=== PATIENT | male | born 1975 | race Caucasian/White ===

== ENCOUNTER 2016-07-15 02:52 | Emergency (ER) | payer OTHER ==
[2016-07-15] MEDS ORDERED: DECADRON 10MG INJ. IM ONE (03:39)
--- NOTE | 2016-07-15 03:45 | ERPHSYRPT ---
- History of Present Illness Time Seen by Provider: 07/15/16 03:31 Source: patient Exam Limitations: no limitations Patient Subjective Stated Complaint: pt is co hives over his entire body - itching and stinging -denies new exposures no fever no vomiting took benadryl without relief Triage Nursing Assessment: pt is awake and alert and able to answer questions - areas of red hives over body Physician History: FOR THE PAST 10 HOURS ABOUT 30 MINUTES AFTER EATING A BURGER [employer] FISH SANDWICH PT ERUPTED WITH PRURITIC HIVES FIRST ON THE TRUNK THEN SPREADING TO THE EXTREMITIES AND NECK. PT DENIES TIGHTNESS IN THE NECK, SHORTNESS OF AIR, NAUSEA , VOMITING, ABDOMINAL PAIN. Allergies/Adverse Reactions: No Known Drug Allergies Allergy (Unverified 07/15/16 03:29) Home Medications: Atorvastatin Calcium 1 tab DAILY 07/15/16 [History] Gabapentin 1 tab QID 07/15/16 [History] Metformin HCl 500 mg [Glucophage 500 MG] 07/15/16 [History] Tizanidine HCl [Zanaflex] 1 tab 07/15/16 [History] Hx Tetanus, Diphtheria Vaccination/Date Given: Yes Hx Influenza Vaccination/Date Given: No Hx Pneumococcal Vaccination/Date Given: No - Review of Systems Constitutional: No Fever Respiratory: No Dyspnea Cardiac: No Chest Pain Skin: Pruritis, Rash All Other Systems: Reviewed and Negative - Past Medical History Pertinent Past Medical History: Yes Cardiac History: High Cholesterol Endocrine Medical History: Diabetes Type II Musculoskeletal History: Degenerative Disk Disease - Past Surgical History Past Surgical History: Yes Gastrointestinal: Appendectomy Musculoskeletal: Other Other Surgical History: back surgeries - Social History Smoking Status: Current every day smoker Exposure to second hand smoke: Yes Drug Use: none Patient Lives Alone: No - Nursing Vital Signs Nursing Vital Signs: Initial Vital Signs Temperature 97.9 F Temperature Source Oral Pulse Rate 95 Respiratory Rate 16 Blood Pressure [Left Arm] 140/82 - Physical Exam General Appearance: alert Eye Exam: PERRL/EOMI, eyes nml inspection Ears, Nose, Throat Exam: TMs normal, pharynx normal, moist mucous membranes Neck Exam: full range of motion Respiratory Exam: normal breath sounds, lungs clear Cardiovascular Exam: normal heart sounds Gastrointestinal/Abdomen Exam: soft, normal bowel sounds Back Exam: normal range of motion Extremity Exam: No pedal edema Neurologic Exam: alert, cooperative Skin Exam: rash (PRURITIC HIVES SCATTERED OVER TRUNK, NECK AND EXTREMITIES.) SpO2 Interpretation: normal SpO2: 99 Oxygen Delivery: Room Air - Course Nursing assessment & vital signs reviewed: Yes - Departure Time of Disposition: 03:47 Departure Disposition: Home Clinical Impression: HIVES Condition: Fair Critical Care Time: No Instructions: Hives Additional Instructions: FOLLOW UP WITH PRIVATE DOCTOR TOMORROW. AVOID FISH SANDWICHES FROM [employer]. Prescriptions: Hydroxyzine HCl 25 mg [Atarax 25 mg] 50 mg PO Q4H PRN PRN #40 tablet PRN Reason: Itching Methylprednisolone Packet [Medrol Dosepack] 4 mg PO UD #30 packet
[2016-07-15] MEDS ORDERED: DECADRON 10MG INJ. ONE (03:46)
[2016-07-15 04:25] VITALS: BP 134/80; PULSE 90; O2SAT 97
== END 2016-07-15 04:24 | disposition home or self-care (01) ==
LOC: ED 02:52
DX: L50.9 Urticaria, unspecified (principal)
CPT/HCPCS: 96372; 99283; 99284; J1100

== ENCOUNTER 2016-07-21 21:39 | Emergency (ER) | payer OTHER ==
--- NOTE | 2016-07-21 22:07 | ERPHSYRPT ---
- History of Present Illness Time Seen by Provider: 07/21/16 21:45 Source: patient Exam Limitations: no limitations Physician History: Pt. treated with Steroids recently for allergic reaction to Xanaflex. Now his BG has been >300 today. He C/O blurred vision slightly, but no chest pain, DAMON or dizziness. He takes Metformin 500 mg po once daily. Timing/Duration: today Severity: moderate Associated Symptoms: No nausea, No vomiting, No abdominal pain, No shortness of breath, No heartburn, No diaphoresis, No cough, No chills, No headaches, No loss of appetite, No malaise, No rash, No syncope, No seizure, No weakness Allergies/Adverse Reactions: tizanidine [From Zanaflex] Allergy (Verified 07/21/16 22:08) Hives Home Medications: Atorvastatin Calcium 1 tab DAILY 07/15/16 [History] Gabapentin 1 tab QID 07/15/16 [History] Metformin HCl 500 mg [Glucophage 500 MG] 500 mg PO DAILY 07/15/16 [History ] Famotidine [Pepcid] 40 mg PO DAILY 07/21/16 [History] Hydroxyzine HCl 25 mg [Atarax 25 mg] 50 mg PO BID 07/21/16 [History] Hx Tetanus, Diphtheria Vaccination/Date Given: Yes Hx Influenza Vaccination/Date Given: No Hx Pneumococcal Vaccination/Date Given: No - Review of Systems Constitutional: No Symptoms Eyes: Other (blurred vision) Ears, Nose, & Throat: No Symptoms Respiratory: No Symptoms Cardiac: No Symptoms Abdominal/Gastrointestinal: No Symptoms Genitourinary Symptoms: No Symptoms Musculoskeletal: No Symptoms Skin: No Symptoms Neurological: No Symptoms Psychological: No Symptoms Endocrine: Polyuria, Polydipsia Hematologic/Lymphatic: No Symptoms - Past Medical History Pertinent Past Medical History: Yes Cardiac History: High Cholesterol Endocrine Medical History: Diabetes Type II Musculoskeletal History: Degenerative Disk Disease - Past Surgical History Past Surgical History: Yes Gastrointestinal: Appendectomy Musculoskeletal: Other Other Surgical History: back surgeries - Social History Smoking Status: Current every day smoker Exposure to second hand smoke: Yes Drug Use: none Patient Lives Alone: No - Nursing Vital Signs Nursing Vital Signs: Initial Vital Signs Temperature 97.6 F Temperature Source Oral Pulse Rate 74 Respiratory Rate 18 Blood Pressure [Right Arm] 136/92 Pain Intensity 0 - Physical Exam General Appearance: mild distress Eye Exam: PERRL/EOMI, eyes nml inspection Ears, Nose, Throat Exam: normal ENT inspection, pharynx normal, moist mucous membranes Neck Exam: normal inspection, non-tender, supple, full range of motion Respiratory Exam: normal breath sounds, lungs clear, airway intact Cardiovascular Exam: regular rate/rhythm, normal heart sounds, normal peripheral pulses Gastrointestinal/Abdomen Exam: soft, normal bowel sounds Extremity Exam: normal inspection, normal range of motion, pelvis stable Neurologic Exam: alert, oriented x 3, cooperative Skin Exam: normal color, warm, dry SpO2 Interpretation: normal SpO2: 96 Oxygen Delivery: Room Air - Course Nursing assessment & vital signs reviewed: Yes Ordered Tests: Active Orders 24 hr Category Date Time Status CBC W DIFF Stat Lab 07/21/16 22:35 Completed CMP Stat Lab 07/21/16 22:35 Completed CULTURE,URINE Stat Lab 07/21/16 22:46 Received Manual Differential NC Stat Lab 07/21/16 22:35 Completed UA W/ MICROSCOPIC Stat Lab 07/21/16 22:46 Completed Medication Summary Discontinued Medications Generic Name Dose Route Start Last Admin Trade Name Freq PRN Reason Stop Dose Admin Belladonna Alkaloids/Phenobarbital 60 ml 07/21/16 22:51 07/21/16 22:59 Gi Cocktail 60ml (Belladonn/Phenobarb/Lidoc* PO 07/21/16 22:52 Not Given STAT ONE Lab/Rad Data: Laboratory Result Diagrams 07/21/16 22:35 07/21/16 22:35 Laboratory Results 07/21/16 07/21/16 07/21/16 Range/Units 22:46 22:35 22:35 WBC 18.1 H (4.0-10.5) K/mm3 RBC 4.81 (4.1-5.6) M/mm3 Hgb 15.1 (12.5-18.0) gm/dl Hct 44.0 (42-50) % MCV 91.5 (78-100) fl MCH 31.4 (26-32) pg MCHC 34.3 (32-36) g/dl RDW 12.9 (11.5-14.0) % Plt Count 364 (150-450) K/mm3 MPV 9.9 H (6-9.5) fl Sodium 139 (136-145) mEq/L Potassium 3.9 (3.5-5.1) mEq/L Chloride 103 (98-107) mEq/L Carbon Dioxide 25.3 (21-32) mEq/L Anion Gap 15.0 (5-15) MEQ/L BUN 20 (9-20) mg/dL Creatinine 1.71 H (0.55-1.30) mg/dl Estimated GFR 47 ML/MIN Glucose 316 H (70-110) MG/DL Calcium 9.2 (8.5-10.1) mg/dL Total Bilirubin 0.3 (0.2-1.0) mg/dL AST 19 (15-37) U/L ALT 44 (12-78) U/L Alkaline Phosphatase 90 (46-116) U/L Serum Total Protein 7.3 (6.4-8.2) gm/dL Albumin 3.4 (3.4-5.0) g/dL Ur Collection Type CLEAN CATCH Urine Color YELLOW (YELLOW) Urine Appearance CLEAR (CLEAR) Urine pH 6.0 (5-6) Ur Specific [place] 1.015 (1.005-1.025) Urine Protein 30 (Negative) Urine Glucose (UA) >=1000 (NEGATIVE) mg/dL Urine Ketones TRACE (NEGATIVE) Urine Nitrite NEGATIVE (NEGATIVE) Urine Bilirubin NEGATIVE (NEGATIVE) Urine Urobilinogen 0.2 (0-1) mg/dL Urine WBC (Auto) NEGATIVE (NEGATIVE) Urine RBC (Auto) TRACE-INTACT (0-5) Tadeo/ul Urine Microscopic RBC 0-2 (0-2) /HPF Urine Microscopic WBC 0-2 (0-5) /HPF Ur Epithelial Cells FEW (FEW) /HPF Urine Bacteria RARE (NEGATIVE) /HPF Specimen Received 07/21/16 2682 - Progress Progress: improved Will see patient in: other (PCP 1 week) Counseled pt/family regarding: lab results, diagnosis, need for follow-up - Departure Time of Disposition: 23:00 Departure Disposition: Home Clinical Impression: Hyperglycemia without ketosis, Steroid side effects Condition: Stable Critical Care Time: No Referrals: HOSPITAL,'S [Primary Care Provider] - Instructions: Hyperglycemia -- Adult Additional Instructions: Plan to taper steroids more rapidly, increase Metformin 500 mg to BID dosing while on steroids, and check BG frequently.
[2016-07-21 22:43] LABS: Mean Cell Volume 91.5 fl (78-100); Mean Corpuscular Hemoglobin 31.4 pg (26-32); Mean Platelet Volume 9.9 fl (6-9.5); Platelet Count 364 K/mm3 (150-450); Red Blood Count 4.81 M/mm3 (4.1-5.6); Red Cell Distribution Width 12.9 % (11.5-14.0); White Blood Count 18.1 K/mm3 (4.0-10.5)
[2016-07-21] MEDS ORDERED: GI COCKTAIL 60ML (Belladonn/Phenobarb/Lidoc PO ONE (22:51)
[2016-07-21 23:04] LABS: ALBUMIN 3.4 g/dL (3.4-5.0); BILIRUBIN,TOTAL 0.3 mg/dL (0.2-1.0); Carbon Dioxide 25.3 mEq/L (21-32); Potassium 3.9 mEq/L (3.5-5.1); Total Protein 7.3 gm/dL (6.4-8.2)
[2016-07-21 23:10] VITALS: BP 136/92; PULSE 74
[2016-07-21 23:10] LABS: Bacteria RARE /HPF (NEGATIVE); COMPLETE URINE MICROSCOPIC? YES; Collection Type CLEAN CATCH; Epithelial Cells FEW /HPF (FEW); WBC 0-2 /HPF (0-5)
[2016-07-21 23:11] LABS: ADD URINE CULTURE? YES (NO)
[2016-07-21 23:14] VITALS: O2SAT 96
[2016-07-21 23:22] LABS: Eosinophil 2 % (0.00-3.0); Platelet Estimate NORMAL (NORMAL); Total Cells Counted 100
== END 2016-07-21 23:34 | disposition home or self-care (01) ==
LOC: ED 21:39
DX: E11.65 Type 2 diabetes mellitus with hyperglycemia (principal); T38.0X5A Adverse effect of glucocorticoids and synthetic analogues, initial encounter; Z79.899 Other long term (current) drug therapy; E78.00 Pure hypercholesterolemia, unspecified; Z79.84 Long term (current) use of oral hypoglycemic drugs
CPT/HCPCS: 36415; 80053; 81000; 85025; 87086; 99283; 99284; A9270-GY

== ENCOUNTER 2019-09-17 00:23 | Emergency (ER) | payer OTHER, BC ==
--- NOTE | 2019-09-17 00:55 | ERPHSYRPT ---
- History of Present Illness Time Seen by Provider: 09/17/19 00:50 Source: patient Exam Limitations: no limitations Physician History: This is a 44-year-old diabetic gentleman with hypertension on low-dose lisinopril who presents with mild dizziness and lightheadedness. Onset was approximately 10:30 PM prior to this evaluation. He felt a little unsteady. He had no syncopal episode. He has had no head injury. His blood pressure is a little bit elevated. He took his medications this past evening. Patient works the third shift at a correctional facility. Patient denies chest pain. He denies shortness of breath. He denies abdominal pain. He said no nausea vomiting or diarrhea. He had no arthralgias or myalgias. He is never had anything like this before. Timing/Duration: today Severity: mild Character of Deficits: none Deficits: off balance (Feeling of off balance. Very mild but present) Baseline/Normal Cognition: alert oriented x 3 Current Cognition: alert oriented x 3 Associated Symptoms: other (Light headedness and dizziness) Allergies/Adverse Reactions: tizanidine [From Zanaflex] Allergy (Verified 07/21/16 22:08) Hives Home Medications: Atorvastatin Calcium 1 tab DAILY 07/15/16 [History] Aspirin 81 gm Chew [Baby Aspirin 81 mg Chew] 1 tab PO DAILY 09/17/19 [History] Pregabalin [Lyrica] 1 cap PO BID 09/17/19 [History] lisinopriL [Zestril] 1 tab PO DAILY 09/17/19 [History] Hx Tetanus, Diphtheria Vaccination/Date Given: Yes Hx Influenza Vaccination/Date Given: No Hx Pneumococcal Vaccination/Date Given: No Travel Risk - International Travel Have you traveled outside of the country in past 3 weeks: No - Coronavirus Screening Are you exhibiting any of the following symptoms?: No Close contact with a COVID-19 positive Pt in past 14-21 Days: No - Review of Systems Constitutional: No Symptoms Eyes: No Symptoms Ears, Nose, & Throat: No Symptoms Respiratory: No Symptoms Cardiac: No Symptoms Abdominal/Gastrointestinal: No Symptoms Genitourinary Symptoms: No Symptoms Musculoskeletal: No Symptoms Skin: No Symptoms Neurological: Dizziness, Other (Lightheadedness) Psychological: No Symptoms Endocrine: No Symptoms Hematologic/Lymphatic: No Symptoms Immunological/Allergic: No Symptoms All Other Systems: Reviewed and Negative - Past Medical History Pertinent Past Medical History: Yes Neurological History: No Pertinent History ENT History: No Pertinent History Cardiac History: High Cholesterol, Hypertension Respiratory History: No Pertinent History Endocrine Medical History: Diabetes Type II Musculoskeletal History: Degenerative Disk Disease GI Medical History: No Pertinent History History: No Pertinent History Psycho-Social History: No Pertinent History Male Reproductive Disorders: No Pertinent History - Past Surgical History Past Surgical History: Yes Neuro Surgical History: No Pertinent History Cardiac: No Pertinent History Respiratory: No Pertinent History Gastrointestinal: Appendectomy Genitourinary: No Pertinent History Musculoskeletal: Other Other Surgical History: back surgeries - Social History Smoking Status: Current every day smoker How long have you smoked: 30 yrs Exposure to second hand smoke: Yes Drug Use: none Patient Lives Alone: No - Nursing Vital Signs Nursing Vital Signs: Initial Vital Signs Temperature 98.3 F 09/17/19 00:24 Pulse Rate 120 H 09/17/19 00:24 Respiratory Rate 18 09/17/19 00:24 Blood Pressure 135/96 09/17/19 00:24 O2 Sat by Pulse Oximetry 97 09/17/19 00:24 Pain Scale Pain Intensity 0 - Darvin Coma Scale Best Eye Response ([place]): (4) open spontaneously Best Verbal Response ([place]): (5) oriented Best Motor Response ([place]): (6) obeys commands [place] Total: 15 - Physical Exam General Appearance: no apparent distress, alert, anxiety Eye Exam: bilateral eye: normal inspection, PERRL, EOMI Ears, Nose, Throat Exam: TMs normal, moist mucous membranes, other (Bilateral ear canals with cerumen present) Neck Exam: normal inspection, non-tender, supple, full range of motion Respiratory: normal breath sounds, lungs clear, airway intact, No chest tenderness, No respiratory distress Cardiovascular: regular rate/rhythm, normal heart sounds, normal peripheral pulses Gastrointestinal: soft, normal bowel sounds, No tenderness Rectal Exam: not done Back Exam: normal inspection, normal range of motion, No CVA tenderness, No vertebral tenderness Extremity Exam: normal inspection, normal range of motion, pelvis stable Mental Status: alert, oriented x 3, 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 No comparison EKG.) Ordered Tests: Active Orders 24 hr Category Date Time Status Grant Writer STAT Care 09/17/19 00:55 Active Clean Catch Urine Specimen STAT Care 09/17/19 00:55 Active EKG-ER Only STAT Care 09/17/19 00:55 Active EKG-ER Only STAT Care 09/17/19 02:27 Active IV Insertion STAT Care 09/17/19 00:55 Active HEAD WITHOUT CONTRAST [CT] Stat Exams 09/17/19 00:55 Taken CBC W DIFF Stat Lab 09/17/19 01:11 Completed CMP Stat Lab 09/17/19 01:11 Completed ETHYL ALCOHOL Stat Lab 09/17/19 01:11 Completed MAGNESIUM Stat Lab 09/17/19 01:11 Completed TROPONIN Q3H Lab 09/17/19 01:11 Completed TROPONIN Q3H Lab 09/17/19 03:30 Completed TROPONIN Q3H Lab 09/17/19 07:00 Ordered TROPONIN Q3H Lab 09/17/19 10:00 Ordered TROPONIN Q3H Lab 09/17/19 13:00 Ordered UA W/RFX UR CULTURE Stat Lab 09/17/19 01:11 Completed Urine Triage Profile Stat Lab 09/17/19 01:11 Completed Medication Summary Generic Name Dose Route Start Last Admin Trade Name Freq PRN Reason Stop Dose Admin Sodium Chloride 1,000 mls @ 100 mls/hr 09/17/19 01:00 09/17/19 01:06 Sodium Chloride 0.9% 1000 Ml IV 10/17/19 00:59 100 mls/hr .Q10H CALE Administration Lab/Rad Data: Laboratory Result Diagrams 09/17/19 01:11 09/17/19 01:11 Laboratory Results 09/17/19 09/17/19 09/17/19 Range/Units 03:30 01:11 01:11 WBC (4.0-10.5) K/mm3 RBC (4.1-5.6) M/mm3 Hgb (12.5-18.0) gm/dl Hct (42-50) % MCV (78-100) fl MCH (26-32) pg MCHC (32-36) g/dl RDW (11.5-14.0) % Plt Count (150-450) K/mm3 MPV (7.5-11.0) fl Gran % (36.0-66.0) % Eos # (Auto) (0-0.5) Absolute Lymphs (auto) (1.0-4.6) Absolute Monos (auto) (0.0-1.3) Lymphocytes % (24.0-44.0) % Monocytes % (0.0-12.0) % Eosinophils % (0.00-5.0) % Basophils % (0.0-0.4) % Absolute Granulocytes (1.4-6.9) Basophils # (0-0.4) Sodium 137 (137-145) mmol/L Potassium 3.8 (3.5-5.1) mmol/L Chloride 105 (98-107) mmol/L Carbon Dioxide 22 (22-30) mmol/L Anion Gap 14.3 (5-15) MEQ/L BUN 13 (9-20) mg/dL Creatinine 1.14 (0.66-1.25) mg/dL Estimated GFR > 60.0 ML/MIN Glucose 246 H (74-106) mg/dL Calcium 9.4 (8.4-10.2) mg/dL Magnesium 1.7 (1.6-2.3) mg/dL Total Bilirubin 0.80 (0.2-1.3) mg/dL AST 38 (17-59) U/L ALT 48 (0-50) U/L Alkaline Phosphatase 91 (38-126) U/L Troponin I < 0.012 < 0.012 (0.000-0.034) ng/mL Serum Total Protein 7.9 (6.3-8.2) g/dL Albumin 4.4 (3.5-5.0) g/dL Urine Color (YELLOW) Urine Appearance (CLEAR) Urine pH (5-6) Ur Specific [place] (1.005-1.025) Urine Protein (Negative) Urine Ketones (NEGATIVE) Urine Blood (0-5) Tadeo/ul Urine Nitrite (NEGATIVE) Urine Bilirubin (NEGATIVE) Urine Urobilinogen (0-1) mg/dL Ur Leukocyte Esterase (NEGATIVE) Urine WBC (Auto) (0-5) /HPF Urine RBC (Auto) (0-2) /HPF U Epithel Cells (Auto) (FEW) /HPF Urine Bacteria (Auto) (NEGATIVE) /HPF Urine Mucus (Auto) (NEGATIVE) /HPF Urine Culture Reflexed (NO) Urine Glucose (NEGATIVE) mg/dL Urine Opiates Level (NEGATIVE) Ur Methadone (NEGATIVE) Urine Barbiturates (NEGATIVE) Ur Phencyclidine (PCP) (NEGATIVE) Urine Amphetamine (NEGATIVE) U Benzodiazepine Level (NEGATIVE) Urine Cocaine (NEGATIVE) Urine Marijuana (THC) (NEGATIVE) Ethyl Alcohol < 10 (0-10) mg/dL 09/17/19 09/17/19 09/17/19 Range/Units 01:11 01:11 01:11 WBC 10.3 (4.0-10.5) K/mm3 RBC 4.83 (4.1-5.6) M/mm3 Hgb 15.3 (12.5-18.0) gm/dl Hct 44.2 (42-50) % MCV 91.5 (78-100) fl MCH 31.7 (26-32) pg MCHC 34.6 (32-36) g/dl RDW 12.6 (11.5-14.0) % Plt Count 294 (150-450) K/mm3 MPV 10.7 (7.5-11.0) fl Gran % 52.3 (36.0-66.0) % Eos # (Auto) 0.38 (0-0.5) Absolute Lymphs (auto) 3.73 (1.0-4.6) Absolute Monos (auto) 0.75 (0.0-1.3) Lymphocytes % 36.3 (24.0-44.0) % Monocytes % 7.3 (0.0-12.0) % Eosinophils % 3.7 (0.00-5.0) % Basophils % 0.4 (0.0-0.4) % Absolute Granulocytes 5.38 (1.4-6.9) Basophils # 0.04 (0-0.4) Sodium (137-145) mmol/L Potassium (3.5-5.1) mmol/L Chloride (98-107) mmol/L Carbon Dioxide (22-30) mmol/L Anion Gap (5-15) MEQ/L BUN (9-20) mg/dL Creatinine (0.66-1.25) mg/dL Estimated GFR ML/MIN Glucose (74-106) mg/dL Calcium (8.4-10.2) mg/dL Magnesium (1.6-2.3) mg/dL Total Bilirubin (0.2-1.3) mg/dL AST (17-59) U/L ALT (0-50) U/L Alkaline Phosphatase (38-126) U/L Troponin I (0.000-0.034) ng/mL Serum Total Protein (6.3-8.2) g/dL Albumin (3.5-5.0) g/dL Urine Color YELLOW (YELLOW) Urine Appearance CLEAR (CLEAR) Urine pH 5.0 (5-6) Ur Specific [place] 1.020 (1.005-1.025) Urine Protein 100 (Negative) Urine Ketones TRACE (NEGATIVE) Urine Blood SMALL (0-5) Tadeo/ul Urine Nitrite NEGATIVE (NEGATIVE) Urine Bilirubin NEGATIVE (NEGATIVE) Urine Urobilinogen NEGATIVE (0-1) mg/dL Ur Leukocyte Esterase NEGATIVE (NEGATIVE) Urine WBC (Auto) 3-5 (0-5) /HPF Urine RBC (Auto) NONE (0-2) /HPF U Epithel Cells (Auto) NONE (FEW) /HPF Urine Bacteria (Auto) NONE (NEGATIVE) /HPF Urine Mucus (Auto) SLIGHT (NEGATIVE) /HPF Urine Culture Reflexed NO (NO) Urine Glucose >=500 (NEGATIVE) mg/dL Urine Opiates Level NEGATIVE (NEGATIVE) Ur Methadone NEGATIVE (NEGATIVE) Urine Barbiturates NEGATIVE (NEGATIVE) Ur Phencyclidine (PCP) NEGATIVE (NEGATIVE) Urine Amphetamine NEGATIVE (NEGATIVE) U Benzodiazepine Level NEGATIVE (NEGATIVE) Urine Cocaine NEGATIVE (NEGATIVE) Urine Marijuana (THC) NEGATIVE (NEGATIVE) Ethyl Alcohol (0-10) mg/dL - Progress Progress: improved, re-examined Progress Note: 09/17/19 02:26 CAT scan of the head shows no acute intracranial findings 09/17/19 02:32 Medical decision making: This patient presented with complaint of lightheadedness. That has resolved. He has no chest pain at the time of discharge. Repeat EKG reveals normal sinus rhythm with a heart rate of 91. There is persistent left anterior fascicular block when compared to the EKG done earlier this morning. There are no acute ischemic changes present. I do not see any ST elevation however the computer readout says ST elevation suggest acute pericarditis. The patient is not having any chest pain at this time. I will keep him here to repeat a 3-hour troponin level and if this is normal I will discharge him to home. I will have him take NSAIDs for the next 5 days and have him follow-up as an outpatient with his primary care physician and/or a head start teacher. There are no acute intracranial findings on CAT scan of his head. His vital signs are stable at the time of discharge. His troponin is within normal limits. Does have bilateral ear canal cerumen. We discussed using Debrox or Cerumenex [id number]. 09/17/19 02:35 09/17/19 02:39 Counseled pt/family regarding: lab results, diagnosis, need for follow-up, rad results - Departure Departure Disposition: Home Clinical Impression: Dizziness, Excessive cerumen in both ear canals Condition: Stable Critical Care Time: No Referrals: [facility]OSPITAL,'[facility] [Primary Care Provider] - Additional Instructions: Use [id number] Debrox or Cerumenex to clean out the earwax within both your ear canals. Follow-up with your primary care physician for further management of your lightheadedness and dizziness. Take your blood pressure med ication as prescribed. Take ibuprofen 600 mg orally 3 times a day with food for the next 5 days.
[2019-09-17] MEDS ORDERED: Sodium Chloride 0.9% 1000 ML 1,000 ML IV SCH (01:00)
[2019-09-17] MEDS ORDERED: Sodium Chloride 0.9% 1000 ML 1,000 ML ONE (01:04)
[2019-09-17 01:12] LABS: Absolute Neutrophil Ct (ANC) 5.38 (1.4-6.9); BASOPHIL % 0.4 % (0.0-0.4); Basophil (Absolute #) 0.04 (0-0.4); Eosinophil % 3.7 % (0.00-5.0); Eosinophil (Absolute #) 0.38 (0-0.5); Hematocrit 44.2 % (42-50); Hemoglobin 15.3 gm/dl (12.5-18.0); Lymphocyte (Absolute #) 3.73 (1.0-4.6); Lymphocytes % 36.3 % (24.0-44.0); Mean Cell Volume 91.5 fl (78-100); Mean Corpuscular Hemoglobin 31.7 pg (26-32); Mean Corpuscular Hgb Concent. 34.6 g/dl (32-36); Mean Platelet Volume 10.7 fl (7.5-11.0); Monocyte (Absolute #) 0.75 (0.0-1.3); Monocytes % 7.3 % (0.0-12.0); Neutrophil % 52.3 % (36.0-66.0); Platelet Count 294 K/mm3 (150-450); Red Blood Count 4.83 M/mm3 (4.1-5.6); Red Cell Distribution Width 12.6 % (11.5-14.0); White Blood Count 10.3 K/mm3 (4.0-10.5)
[2019-09-17 01:13] LABS: Appearance CLEAR (CLEAR); Bilirubin NEGATIVE (NEGATIVE); Blood SMALL Ery/ul (0-5); Glucose >=500 mg/dL (NEGATIVE); Ketones TRACE (NEGATIVE); Leukocyte Esterase NEGATIVE (NEGATIVE); Mucus SLIGHT /HPF (NEGATIVE); Nitrite NEGATIVE (NEGATIVE); Protein,Urine Dip 100 (Negative); Urobilinogen NEGATIVE mg/dL (0-1)
[2019-09-17 01:23] LABS: ALBUMIN 4.4 g/dL (3.5-5.0); ALKALINE PHOSPHATASE 91 U/L (38-126); ANION GAP 14.3 MEQ/L (5-15); BLOOD UREA NITROGEN 13 mg/dL (9-20); CHLORIDE 105 mmol/L (98-107); Calcium 9.4 mg/dL (8.4-10.2); Carbon Dioxide 22 mmol/L (22-30); Creatinine 1 1.14 mg/dL (0.66-1.25); Glucose 246 mg/dL (74-106); MAGNESIUM 1.7 mg/dL (1.6-2.3); Potassium 3.8 mmol/L (3.5-5.1); SGOT/AST 38 U/L (17-59); SGPT/ALT 48 U/L (0-50); SODIUM 137 mmol/L (137-145); Total Protein 7.9 g/dL (6.3-8.2)
[2019-09-17 01:24] LABS: ETHYL ALCOHOL < 10 mg/dL (0-10)
[2019-09-17 01:27] LABS: Amphetamine,Urine NEGATIVE (NEGATIVE); Barbiturate,Urine NEGATIVE (NEGATIVE); Benzodiazepine,Urine NEGATIVE (NEGATIVE); Cocaine,Urine NEGATIVE (NEGATIVE); Methadone,Urine NEGATIVE (NEGATIVE); Opiate,Urine NEGATIVE (NEGATIVE); PCP,Urine NEGATIVE (NEGATIVE); THC,Urine NEGATIVE (NEGATIVE)
[2019-09-17 04:05] VITALS: BP 133/81; PULSE 89; O2SAT 96
--- NOTE | 2019-09-17 09:04 | XRAY ---
Indication: Dizziness. Hypertension. Multiple contiguous axial images obtained through the head without contrast. Comparison: None Normal appearing brain parenchyma, ventricles, and bony calvarium. There is mild/moderate bilateral paranasal sinus mucosal thickening without fluid leveling, greatest ethmoid sinuses. Mastoid air cells are clear. Impression: Pansinusitis. Remaining CT head without contrast exam is negative. Comment: Preliminary interpretation was made by [facility]. No critical discrepancy.
== END 2019-09-17 04:34 | disposition home or self-care (01) ==
LOC: ED 00:23
DX: R42 Dizziness and giddiness (principal); H61.23 Impacted cerumen, bilateral
CPT/HCPCS: 36000; 36415; 70450; 80053; 80307; 81001; 83735; 84484; 85025; 93005; 93041; 96360; 99284; G0480

== ENCOUNTER 2020-05-09 18:10 | Emergency (ER) | payer BC ==
[2020-05-09] MEDS ORDERED: PERCOCET TABLET 5/325MG PO ONE (18:31)
[2020-05-09] MEDS ORDERED: TORAdol 30 mg Injection IM ONE (18:31)
[2020-05-09 18:32] VITALS: BP 163/93; PULSE 91; O2SAT 96
--- NOTE | 2020-05-09 18:35 | ERPHSYRPT ---
- History of Present Illness Time Seen by Provider: 05/09/20 18:21 Source: patient Exam Limitations: no limitations Physician History: Increasing pain right upper anterior jaw after root canal done yesterday. Patient is on amoxicillin but not taking any pain medications. Allergies/Adverse Reactions: tizanidine [From Zanaflex] Allergy (Verified 07/21/16 22:08) Hives Home Medications: Atorvastatin Calcium 1 tab DAILY 07/15/16 [History] Aspirin 81 gm Chew [Baby Aspirin 81 mg Chew] 1 tab PO DAILY 09/17/19 [History] Pregabalin [Lyrica] 1 cap PO BID 09/17/19 [History] lisinopriL [Zestril] 1 tab PO DAILY 09/17/19 [History] Tizanidine HCl [Zanaflex] 4 mg PO DAILY 05/09/20 [History] Hx Tetanus, Diphtheria Vaccination/Date Given: Yes Hx Influenza Vaccination/Date Given: No Hx Pneumococcal Vaccination/Date Given: No - Past Medical History Pertinent Past Medical History: Yes Neurological History: No Pertinent History ENT History: No Pertinent History Cardiac History: High Cholesterol, Hypertension Respiratory History: No Pertinent History Endocrine Medical History: Diabetes Type II Musculoskeletal History: Degenerative Disk Disease GI Medical History: No Pertinent History History: No Pertinent History Psycho-Social History: No Pertinent History Male Reproductive Disorders: No Pertinent History - Past Surgical History Past Surgical History: Yes Neuro Surgical History: No Pertinent History Cardiac: No Pertinent History Respiratory: No Pertinent History Gastrointestinal: Appendectomy Genitourinary: No Pertinent History Musculoskeletal: Other Other Surgical History: back surgeries - Social History Smoking Status: Current every day smoker How long have you smoked: 30 yrs Exposure to second hand smoke: Yes Drug Use: none Patient Lives Alone: No - Progress Progress: pain not gone completely Counseled pt/family regarding: diagnosis, need for follow-up - Departure Departure Disposition: Home Clinical Impression: Pain, dental Condition: Stable Critical Care Time: No Referrals: DOCTOR,NO FAMILY [Primary Care Provider] - Instructions: Dental Pain (DC) Additional Instructions: Take pain medications as needed. Continue with amoxicillin. Follow-up with your dentist for reevaluation Monday morning. Return to ER for increasing pain swelling/fever chills etc. Prescriptions: Oxycodone HCl/Acetaminophen [Percocet 5-325 mg Tablet] 1 each PO Q6H PRN PRN 2 Days #8 tablet MDD 4 PRN Reason: Pain
[2020-05-09] MEDS ORDERED: TORAdol 30 mg Injection ONE (18:37)
[2020-05-09] MEDS ORDERED: PERCOCET TABLET 5/325MG ONE (18:38)
== END 2020-05-09 19:00 | disposition home or self-care (01) ==
LOC: ED 18:10
DX: R68.84 Jaw pain (principal); K08.89 Other specified disorders of teeth and supporting structures; I10 Essential (primary) hypertension; E11.9 Type 2 diabetes mellitus without complications; F17.210 Nicotine dependence, cigarettes, uncomplicated
CPT/HCPCS: 96372; 99283; J1885; A9270-GY

== ENCOUNTER 2021-01-31 20:49 | Emergency (ER) | payer BC, OTHER ==
[2021-01-31] MEDS ORDERED: Norflex 60 MG/2 ML IM ONE (22:17)
[2021-01-31] MEDS ORDERED: TORAdol 30 mg Injection IM ONE (22:17)
[2021-01-31] MEDS ORDERED: Norflex 60 MG/2 ML ONE (22:27)
[2021-01-31] MEDS ORDERED: TORAdol 30 mg Injection ONE (22:27)
--- NOTE | 2021-01-31 22:36 | ERPHSYRPT ---
- History of Present Illness Time Seen by Provider: 01/31/21 21:00 Source: patient Exam Limitations: no limitations Patient Subjective Stated Complaint: pt states he bent over this morning and heard a pop in his lower back and began having pain radiating down both legs. st ates pain on lt side is in the posterior upper leg, pain in rt leg is outer upper leg. Triage Nursing Assessment: pt alert and oriented answers questions approp. pt ambulatory with slow limping gait noted. respirations nonlabored with lungs cta. mild tenerness to lower back with palpation. pt able to move lower ext without difficulty. denies any incont of bowel or bladder. Physician History: 45 years old male with history of diabetes mellitus diabetic neuropathy, chronic back pain with L5-S1 fusion long time ago presented in the ER with chief complaint of sudden onset left lateral low back pain after he bent over while working in the yard earlier today and heard a popping sound with radiation of pain to buttock/lower extremity. Denies any numbness or weakness but what he has from his neuropathy. No loss of bowel or bladder control. Denies any midline back pain. Timing/Duration: today, constant, sudden, worse Method of Injury: bending Quality: stabbing Back Pain Location: paraspinous muscles Back Pain Radiation: buttocks, upper legs Severity of Pain-Max: severe Severity of Pain-Current: moderate Modifying Factors: Improves With: immobilization. Worsens With: movement Associated Symptoms: numbness in legs/feet, lower back pain, muscle spasms, No urinary incontinence, No loss of bowel control, No constipation, No nausea, No vomiting, No problems urinating Allergies/Adverse Reactions: gabapentin Allergy (Verified 01/31/21 22:00) Hives Home Medications: Atorvastatin Calcium 1 tab DAILY 07/15/16 [History] Aspirin 81 gm Chew [Baby Aspirin 81 mg Chew] 1 tab PO DAILY 09/17/19 [History] Pregabalin [Lyrica] 1 cap PO BID 09/17/19 [History] lisinopriL [Zestril] 1 tab PO DAILY 09/17/19 [History] Tizanidine HCl [Zanaflex] 4 mg PO DAILY 05/09/20 [History] Hx Tetanus, Diphtheria Vaccination/Date Given: Yes Hx Influenza Vaccination/Date Given: No Hx Pneumococcal Vaccination/Date Given: No Immunizations Up to Date: Yes Travel Risk - International Travel Have you traveled outside of the country in past 3 weeks: No - Coronavirus Screening Are you exhibiting any of the following symptoms?: No Close contact with a COVID-19 positive Pt in past 14-21 Days: No - Vaccine Status Have you recieved a Covid-19 vaccination: No - Review of Systems Constitutional: No Symptoms Ears, Nose, & Throat: No Symptoms Respiratory: No Symptoms Cardiac: No Symptoms Abdominal/Gastrointestinal: No Symptoms Genitourinary Symptoms: No Symptoms Musculoskeletal: Back Pain Skin: No Symptoms Neurological: Sensory Changes (Chronic) Psychological: No Symptoms Endocrine: No Symptoms Hematologic/Lymphatic: No Symptoms Immunological/Allergic: No Symptoms - Past Medical History Pertinent Past Medical History: Yes Neurological History: No Pertinent History ENT History: No Pertinent History Cardiac History: High Cholesterol, Hypertension Respiratory History: No Pertinent History Endocrine Medical History: Diabetes Type II Musculoskeletal History: Degenerative Disk Disease GI Medical History: No Pertinent History History: No Pertinent History Psycho-Social History: No Pertinent History Male Reproductive Disorders: No Pertinent History - Past Surgical History Past Surgical History: Yes Neuro Surgical History: No Pertinent History Cardiac: No Pertinent History Respiratory: No Pertinent History Gastrointestinal: Appendectomy Genitourinary: No Pertinent History Musculoskeletal: Other Other Surgical History: back surgeries. l5s1 fusion - Social History Smoking Status: Former smoker How long have you smoked: 30 yrs Exposure to second hand smoke: Yes Drug Use: none Patient Lives Alone: No - Nursing Vital Signs Nursing Vital Signs: Initial Vital Signs Temperature 98.1 F 01/31/21 21:38 Pulse Rate 74 01/31/21 21:38 Respiratory Rate 18 01/31/21 21:38 Blood Pressure 120/68 01/31/21 21:38 O2 Sat by Pulse Oximetry 98 01/31/21 21:38 Pain Scale Pain Intensity 10 - Physical Exam General Appearance: no apparent distress, alert Ears, Nose, Throat Exam: normal ENT inspection, TMs normal, pharynx normal Neck Exam: normal inspection, supple, full range of motion Respiratory Exam: normal breath sounds, lungs clear Cardiovascular Exam: regular rate/rhythm, normal heart sounds Gastrointestinal Exam: soft, normal bowel sounds, No tenderness Back Exam: normal inspection, decreased range of motion, muscle spasm (Left sacroiliac area), No vertebral tenderness (No midline tenderness) Extremity Exam: normal inspection, normal range of motion, pelvis stable Neurologic Exam: alert, oriented x 3, cooperative, manager building II-XII nml as tested, nml cerebellar function, nml station & gait, No abnormal gait Skin Exam: normal color SpO2 Interpretation: normal SpO2: 98 O2 Delivery: Room Air Ordered Tests: Medication Summary Discontinued Medications Generic Name Dose Route Start Last Admin Trade Name Augie PRN Reason Stop Dose Admin Ketorolac Tromethamine 30 mg 01/31/21 22:17 01/31/21 22:30 Ketorolac Tromethamine 30 Mg/Ml Inj IM 01/31/21 22:18 30 mg STAT ONE Administration Ketorolac Tromethamine Confirm 01/31/21 22:27 Ketorolac Tromethamine 30 Mg/Ml Inj Administered 01/31/21 22:28 Dose 30 mg .ROUTE .STK-[facility] ONE Orphenadrine Citrate 60 mg 01/31/21 22:17 01/31/21 22:30 Orphenadrine Citrate 60 Mg/2 Ml Amp IM 01/31/21 22:18 60 mg STAT ONE Administration Orphenadrine Citrate Confirm 01/31/21 22:27 Orphenadrine Citrate 60 Mg/2 Ml Amp Administered 01/31/21 22:28 Dose 60 mg .ROUTE .STK-MED ONE - Progress Progress: improved Progress Note: 01/31/21 45 years old is evaluated for low back pain after he bent over and started to have left lower back pain. No midline back pain. No weakness. No difficulty ambulation while in the ER. No other cauda equina symptoms. Given symptomatic treatment, feeling better on reevaluation. I have discussed with patient about obtaining CT but patient does not think this is the same kind of pain he used to have it before and it is more on the low lateral side and I do agree with him I believe he probably have low back strain. We will continue with pain medication and muscle relaxants to go home. Discussed signs symptoms of worsening needing return to ER which he seems understanding. Stable for discharge. Counseled pt/family regarding: diagnosis, need for follow-up - Departure Departure Disposition: Home Clinical Impression: Low back strain Qualifiers: Encounter type: initial encounter Qualified Code(s): S39.012A - Strain of muscle, fascia and tendon of lower back, initial encounter Condition: Stable Critical Care Time: No Referrals: [facility] [Primary Care Provider] - Follow up/PCP as directed (With your pain management/primary care doctor at [facility] for reevaluation in 1 to 2 days.) Instructions: Low Back Pain (DC) Additional Instructions: Take pain medications as needed. Continue with muscle relaxants which you have at home. Follow-up with primary care/pain management at [facility] Evelina Kam for reev aluation. Return to ER for intractable pain or if you have pain in the midline, numbness tingling more than your usual neuropathy or loss of bowel or bladder control. Prescriptions: Hydrocodone/APAP 5/325 [[place] 5/325 mg] 1 each PO Q6H PRN PRN #12 tablet MDD 4 PRN Reason: Pain
== END 2021-01-31 22:52 | disposition home or self-care (01) ==
LOC: ED 20:49
DX: S39.012A Strain of muscle, fascia and tendon of lower back, initial encounter (principal); X50.1XXA Overexertion from prolonged static or awkward postures, initial encounter; Y93.H2 Activity, gardening and landscaping; Z79.899 Other long term (current) drug therapy; E11.9 Type 2 diabetes mellitus without complications; I10 Essential (primary) hypertension
CPT/HCPCS: 96372; 99283; 99291; J1885; J2360

== ENCOUNTER 2022-02-13 13:06 | Emergency (ER) | payer OTHER ==
[2022-02-13 13:38] VITALS: O2SAT 96
--- NOTE | 2022-02-13 13:46 | ERPHSYRPT ---
- History of Present Illness Time Seen by Provider: 02/13/22 13:44 Source: patient Exam Limitations: no limitations Patient Subjective Stated Complaint: Cough Triage Nursing Assessment: Patient ambulated back to ED and transferred self to bed. Patient A+O x 3. Patient's skin flushed, warm and dry. Patient complains of fever, cough, vomiting, bodyaches and fatigue since yesterday. Patient complains of head ache 5/10. Physician History: Patient complains of fever, cough, vomiting, bodyaches and fatigue since yesterday. Patient complains of head ache 5/10. Timing/Duration: yesterday Cough Quality/Degree: dry cough Associated Symptoms: fever, chills, cough, headache, muscle aches Allergies/Adverse Reactions: duloxetine Allergy (Verified 02/13/22 13:27) gabapentin Allergy (Verified 01/31/21 22:00) Hives Home Medications: Atorvastatin Calcium 1 tab DAILY 07/15/16 [History] Aspirin 81 gm Chew [Baby Aspirin 81 mg Chew] 1 tab PO DAILY 09/17/19 [History] Pregabalin [Lyrica] 1 cap PO BID 09/17/19 [History] lisinopriL [Zestril] 1 tab PO DAILY 09/17/19 [History] Tizanidine HCl [Zanaflex] 4 mg PO DAILY 05/09/20 [History] Hx Tetanus, Diphtheria Vaccination/Date Given: Yes Hx Influenza Vaccination/Date Given: No Hx Pneumococcal Vaccination/Date Given: No Immunizations Up to Date: Yes Travel Risk - International Travel Have you traveled outside of the country in past 3 weeks: No - Coronavirus Screening Are you exhibiting any of the following symptoms?: Yes Symptoms: Fever Close contact with a COVID-19 positive Pt in past 14-21 Days: No - Vaccine Status Have you recieved a Covid-19 vaccination: No - Review of Systems Constitutional: Fever, Chills, Malaise, Night Sweats Eyes: No Symptoms Ears, Nose, & Throat: No Symptoms Respiratory: Cough, No Dyspnea Cardiac: No Chest Pain, No Edema, No Syncope Abdominal/Gastrointestinal: Vomiting, No Abdominal Pain, No Nausea, No Diarrhea Genitourinary Symptoms: No Dysuria Musculoskeletal: Myalgias, No Back Pain, No Neck Pain Skin: No Rash Neurological: No Dizziness, No Focal Weakness, No Sensory Changes Psychological: No Symptoms Endocrine: No Symptoms All Other Systems: Reviewed and Negative - Past Medical History Pertinent Past Medical History: Yes Neurological History: No Pertinent History ENT History: No Pertinent History Cardiac History: High Cholesterol, Hypertension Respiratory History: No Pertinent History Endocrine Medical History: Diabetes Type II Musculoskeletal History: Degenerative Disk Disease GI Medical History: No Pertinent History History: No Pertinent History Psycho-Social History: No Pertinent History Male Reproductive Disorders: No Pertinent History - Past Surgical History Past Surgical History: Yes Neuro Surgical History: No Pertinent History Cardiac: No Pertinent History Respiratory: No Pertinent History Gastrointestinal: Appendectomy Genitourinary: No Pertinent History Musculoskeletal: Other Other Surgical History: back surgeries. l5s1 fusion - Social History Smoking Status: Former smoker How long have you smoked: 30 yrs Exposure to second hand smoke: Yes Drug Use: none Patient Lives Alone: No - Nursing Vital Signs Nursing Vital Signs: Initial Vital Signs Temperature 102.4 F 02/13/22 13:28 Pulse Rate 105 H 02/13/22 13:28 Respiratory Rate 18 02/13/22 13:28 Blood Pressure 144/70 02/13/22 13:28 O2 Sat by Pulse Oximetry 95 02/13/22 13:28 Pain Scale Pain Intensity 5 - Physical Exam General Appearance: no apparent distress, alert Eye Exam: PERRL/EOMI, eyes nml inspection Ears, Nose, Throat Exam: normal ENT inspection, TMs normal, pharynx normal, moist mucous membranes Neck Exam: normal inspection, non-tender, supple, full range of motion Respiratory Exam: normal breath sounds, lungs clear, No respiratory distress Cardiovascular Exam: regular rate/rhythm, normal heart sounds Gastrointestinal/Abdomen Exam: soft, No tenderness Back Exam: normal inspection, No CVA tenderness, No vertebral tenderness Extremity Exam: normal inspection, normal range of motion Neurologic Exam: alert, oriented x 3, cooperative, normal mood/affect, sensation nml, No motor deficits Skin Exam: normal color, warm, dry, No rash Lymphatic Exam: No adenopathy SpO2: 96 - Course Nursing assessment & vital signs reviewed: Yes Ordered Tests: Active Orders 24 hr Category Date Time Status CBC W DIFF Stat Lab 02/13/22 13:44 Completed CMP Stat Lab 02/13/22 13:44 Completed Medication Summary Discontinued Medications Generic Name Dose Route Start Last Admin Trade Name Freq PRN Reason Stop Dose Admin Acetaminophen 975 mg 02/13/22 13:49 02/13/22 14:02 Acetaminophen 325 Mg Tablet PO 02/13/22 13:50 975 mg STAT STA Administration Acetaminophen Confirm 02/13/22 14:01 Acetaminophen 325 Mg Tablet Administered 02/13/22 14:02 Dose 975 mg .ROUTE .STK-[facility] ONE Ibuprofen 600 mg 02/13/22 13:49 02/13/22 14:02 Ibuprofen 600 Mg Tablet PO 02/13/22 13:50 600 mg STAT STA Administration Ibuprofen Confirm 02/13/22 14:01 Ibuprofen 600 Mg Tablet Administered 02/13/22 14:02 Dose 600 mg .ROUTE .STK-[facility] ONE Lab/Rad Data: Laboratory Result Diagrams 02/13/22 13:44 02/13/22 13:44 Laboratory Results 02/13/22 02/13/22 02/13/22 Range/Units 13:44 13:44 13:44 WBC 6.8 (4.0-10.5) x10^3/uL RBC 4.68 (4.1-5.6) x10^6/uL Hgb 14.5 (12.5-18.0) g/dL Hct 43.6 (42-50) % MCV 93.2 (78-100) fL MCH 31.0 (26-32) pg MCHC 33.3 (32-36) g/dL RDW 12.3 (11.5-14.0) % Plt Count 245 (150-450) x10^3/uL MPV 9.7 (7.5-11.0) fL Gran % 56.4 (36.0-66.0) % Immature Gran % (Auto) 0.3 (0.00-0.4) % Nucleat RBC Rel Count 0.0 (0.00-0.1) % Eos # (Auto) 0.18 (0-0.5) x10^3/uL Immature Gran # (Auto) 0.02 (0.00-0.03) x10^3u/L Absolute Lymphs (auto) 1.75 (1.0-4.6) x10^3/uL Absolute Monos (auto) 0.96 (0.0-1.3) x10^3/uL Absolute Nucleated RBC 0.00 (0.00-0.01) x10^3u/L Lymphocytes % 25.8 (24.0-44.0) % Monocytes % 14.1 H (0.0-12.0) % Eosinophils % 2.7 (0.00-5.0) % Basophils % 0.7 (0.0-0.4) % Absolute Granulocytes 3.83 (1.4-6.9) x10^3/uL Basophils # 0.05 (0-0.4) x10^3/uL Sodium 138 (137-145) mmol/L Potassium 4.1 (3.5-5.1) mmol/L Chloride 102 (98-107) mmol/L Carbon Dioxide 27 (22-30) mmol/L Anion Gap 13.0 (5-15) MEQ/L BUN 10 (9-20) mg/dL Creatinine 1.24 (0.66-1.25) mg/dL Estimated GFR > 60.0 ML/MIN Glucose 133 H (74-106) mg/dL Calcium 9.0 (8.4-10.2) mg/dL Total Bilirubin 0.80 (0.2-1.3) mg/dL AST 39 (17-59) U/L ALT 40 (0-50) U/L Alkaline Phosphatase 83 (38-126) U/L Serum Total Protein 8.1 (6.3-8.2) g/dL Albumin 4.5 (3.5-5.0) g/dL Influenza Type A Ag POSITIVE (NEGATIVE) Influenza Type B Ag NEGATIVE (NEGATIVE) RSV (PCR) NEGATIVE (Negative) SARS-CoV-2 (PCR) NEGATIVE (NEGATIVE) - Progress Progress: unchanged Air Movement: good Blood Culture(s) Obtained: No Antibiotics given: No Counseled pt/family regarding: lab results, diagnosis, need for follow-up - Departure Departure Disposition: Home Clinical Impression: Influenza A Condition: Stable Critical Care Time: No Referrals: ABNER LAUREN NP [Primary Care Provider] - Follow up/PCP as directed Instructions: Flu, Adult (DC) Additional Instructions: Discharge/Care Plan BRITTANEY GARRISONALICE BLACKMAN was seen on 02/13/22 in the Emergency Room. The patient was counseled regarding Diagnosis,Lab results, Imaging studies, need for follow up and when to return to the Emergency Room. Prescriptions given: Discharge Note I have spoken with the patient and/or caregivers. I have explained the patient's condition, diagnosis and treatment plan based on the information available to me at this time. I have answered the patient's and/or caregiver's questions and addressed any concerns. The patient and/or caregivers have as good understanding of the patient's diagnosis, condition and treatment plan as can be expected at this point. The vital signs have been stable. The patient's condition is stable and appropriate for discharge from the emergency department. The patient will pursue further outpatient evaluation with the primary care physician or other designated or consulting physician as outlined in the discharge instructions. The patient and/or caregivers are agreeable to this plan of care and follow-up instructions have been explained in detail. The patient and/or caregivers have received these instruction. The patient/and or caregivers are aware that any significant change in condition or worsening of symptoms should prompt an immediate return to this or the closest emergency department or call 911. NESHA GARRISON was seen on 02/13/22 n the Emergency Room. At that time you were treated for an emergent condition, during your visit Laboratory, Radiology and/or other procedures may have been ordered. It is very important that you follow-up with your Primary Care Physician ABNER LAUREN NP within the next 24-48 hours to review your Emergency Room visit and the final results of testing that was ordered. Some test results such as Urine Cultures, Blood Cultures, and other cultures if ordered will not be finalized for 24-48 hours. If you do not have a Primary Care Provider please call the medical records department at [phone] ext [phone] to obtain a copy of your results or you may sign into our patient portal to obtain these results by visiting us @ [email or web address] and completing the following steps: 1. Click on the Patient Portal link 2. Click the Patient Self Enrollment Link to complete the enrollment form and entering your 3. Once the enrollment form is completed you will receive an email with a temporary ID and password at the email address you provided. 4. Next choose a user name and password. Your user name must be at least 4 characters long and your password must be at least 4 characters long. 5. Choose a security question from the list and provide your answer to the question. If you already have signed into the Health Portal you may access your Health Care Information 17/10 by the following steps: 1. Login to our website @ [email or web address] 2. Enter your original user name and password. FAQS [facility] Health Portal is an online tool that contains your Lab Results, Radiology Reports, Visit History, Discharge Instructions and Health Summary Lab and Radiology Results will not be available for 72 hours on the portal. The Portal is a secure site, passwords are encryted and URLs are re-written so they cannot be copied and pasted. You and authorized family members are the only ones who can access your Portal. Also there is a timeout feature that protects your information if you leave the Portal page open. If you have technical difficulty please use the Contact Us link on the page this will allow you to submit any questions you have regarding the Portal or you may contact the Medical Record Department at [phone] ext [phone]. Prescriptions: Oseltamivir 75 mg [Tamiflu 75MG Capsule] 75 mg PO BID #10 cap
[2022-02-13 13:49] LABS: Absolute Neutrophil Ct (ANC) 3.83 x10^3/uL (1.4-6.9); Basophil (Absolute #) 0.05 x10^3/uL (0-0.4); Eosinophil % 2.7 % (0.00-5.0); Eosinophil (Absolute #) 0.18 x10^3/uL (0-0.5); Hematocrit 43.6 % (42-50); Hemoglobin 14.5 g/dL (12.5-18.0); Lymphocyte (Absolute #) 1.75 x10^3/uL (1.0-4.6); Lymphocytes % 25.8 % (24.0-44.0); Mean Cell Volume 93.2 fL (78-100); Mean Corpuscular Hgb Concent. 33.3 g/dL (32-36); Mean Platelet Volume 9.7 fL (7.5-11.0); Monocyte (Absolute #) 0.96 x10^3/uL (0.0-1.3); Monocytes % 14.1 % (0.0-12.0); Neutrophil % 56.4 % (36.0-66.0); Platelet Count 245 x10^3/uL (150-450); Red Blood Count 4.68 x10^6/uL (4.1-5.6); Red Cell Distribution Width 12.3 % (11.5-14.0); White Blood Count 6.8 x10^3/uL (4.0-10.5)
[2022-02-13] MEDS ORDERED: MOTRIN 600 MG PO STA (13:49)
[2022-02-13] MEDS ORDERED: TYLENOL 325 MG PO STA (13:49)
[2022-02-13] MEDS ORDERED: TYLENOL 325 MG ONE (14:01)
[2022-02-13] MEDS ORDERED: MOTRIN 600 MG ONE (14:01)
[2022-02-13 14:07] LABS: ALBUMIN 4.5 g/dL (3.5-5.0); ALKALINE PHOSPHATASE 83 U/L (38-126); BLOOD UREA NITROGEN 10 mg/dL (9-20); CHLORIDE 102 mmol/L (98-107); Carbon Dioxide 27 mmol/L (22-30); Creatinine 1 1.24 mg/dL (0.66-1.25); EST GLOMERULAR FILTRATION RATE > 60.0 ML/MIN; Glucose 133 mg/dL (74-106); Potassium 4.1 mmol/L (3.5-5.1); SGOT/AST 39 U/L (17-59); SGPT/ALT 40 U/L (0-50); SODIUM 138 mmol/L (137-145); Total Protein 8.1 g/dL (6.3-8.2)
[2022-02-13 14:28] LABS: INFLUENZA B NEGATIVE (NEGATIVE); RESPIRATORY SYNCTIAL VIRUS NEGATIVE (Negative); SARS-CoV-2 Xpert Express NEGATIVE (NEGATIVE)
[2022-02-13 14:32] LABS: INFLUENZA A POSITIVE (NEGATIVE)
[2022-02-13 14:46] VITALS: BP 140/70; PULSE 90
== END 2022-02-13 14:46 | disposition home or self-care (01) ==
LOC: ED 13:06
DX: J10.1 Influenza due to other identified influenza virus with other respiratory manifestations (principal); R50.9 Fever, unspecified; R05.1 Acute cough; R11.10 Vomiting, unspecified; M79.10 Myalgia, unspecified site; R53.83 Other fatigue; R51.9 Headache, unspecified; E78.5 Hyperlipidemia, unspecified; I10 Essential (primary) hypertension; E11.9 Type 2 diabetes mellitus without complications; Z79.899 Other long term (current) drug therapy; Z28.310 Unvaccinated for COVID-19
CPT/HCPCS: 0241U; 36415; 80053; 85025; 99283; A9270-GY

== ENCOUNTER 2024-03-21 08:02 | Emergency (ER) | payer BC, OTHER ==
--- NOTE | 2024-03-21 08:03 | ERPHSYRPT ---
- History of Present Illness Time Seen by Provider: 03/21/24 08:03 Source: patient Exam Limitations: no limitations Physician History: This is an obese 48-year-old white male patient who receives his medical care in the [facility]. Patient presents with a sore throat for a month. Patient has a history of chewing tobacco for almost 40 years. He swallows the fluid and does not spit it out. He did notice a right buccal lesion present which has decreased in size. He has tenderness with swallowing and with drinking carbonated fluids. Patient has no difficulty breathing and he does have pain into his left ear. He has not had any stridor. He denies coughing up blood. Patient has a history of hyperlipidemia, hypertension and degenerative disc disease. He is not on any pain medicine at this time. However, he does have a full prescription of prednisone at home. Timing/Duration: other (Present for a month) Cough Quality/Degree: no cough Possible Cause: no prior episodes Modifying Factors: Improves With: other (Hurts to swallow) Associated Symptoms: earache (Left side), facial pain (Left side), sore throat Allergies/Adverse Reactions: duloxetine Allergy (Verified 03/21/24 08:19) gabapentin Allergy (Verified 03/21/24 08:19) Hives Home Medications: Atorvastatin Calcium 1 tab DAILY 07/15/16 [History] Aspirin 81 gm Chew [Baby Aspirin 81 mg Chew] 1 tab PO DAILY 09/17/19 [History] Pregabalin [Lyrica] 1 cap PO BID 09/17/19 [History] lisinopriL [Zestril] 1 tab PO DAILY 09/17/19 [History] Tizanidine HCl [Zanaflex] 4 mg PO DAILY 05/09/20 [History] Hx Tetanus, Diphtheria Vaccination/Date Given: Yes Hx Influenza Vaccination/Date Given: No Hx Pneumococcal Vaccination/Date Given: No Travel Risk - International Travel Have you traveled outside of the country in past 3 weeks: No - Emerging Infectious Disease Are you exhibiting symptoms associated with any current EIDs: Yes Symptoms: Other (Please Comment) (Sore throat) - Review of Systems Constitutional: No Symptoms Eyes: No Symptoms Ears, Nose, & Throat: Ear Pain (Left earache), Mouth Pain (When drinking carbonated fluids), Throat Pain, Painful Swallowing Respiratory: No Symptoms Cardiac: No Symptoms Abdominal/Gastrointestinal: No Symptoms Genitourinary Symptoms: No Symptoms Musculoskeletal: No Symptoms Skin: No Symptoms Neurological: No Symptoms Psychological: No Symptoms Endocrine: No Symptoms Hematologic/Lymphatic: No Symptoms Immunological/Allergic: No Symptoms All Other Systems: Reviewed and Negative - Past Medical History Pertinent Past Medical History: Yes Neurological History: No Pertinent History ENT History: No Pertinent History Cardiac History: High Cholesterol, Hypertension Respiratory History: No Pertinent History Endocrine Medical History: Diabetes Type II Musculoskeletal History: Degenerative Disk Disease GI Medical History: No Pertinent History History: No Pertinent History Psycho-Social History: No Pertinent History Male Reproductive Disorders: No Pertinent History - Past Surgical History Past Surgical History: Yes Neuro Surgical History: No Pertinent History Cardiac: No Pertinent History Respiratory: No Pertinent History Gastrointestinal: Appendectomy Genitourinary: No Pertinent History Musculoskeletal: Other Other Surgical History: back surgeries. l5s1 fusion - Social History Smoking Status: Former smoker How long have you smoked: 30 yrs Exposure to second hand smoke: Yes Drug Use: none Patient Lives Alone: No - Nursing Vital Signs Nursing Vital Signs: Initial Vital Signs Temperature 96.7 F 03/21/24 08:25 Pulse Rate 87 03/21/24 08:25 Respiratory Rate 20 03/21/24 08:25 Blood Pressure 130/91 03/21/24 08:25 O2 Sat by Pulse Oximetry 95 03/21/24 08:25 Pain Scale Pain Intensity 8 - Physical Exam General Appearance: no apparent distress, alert, anxiety, obese Eye Exam: PERRL/EOMI, eyes nml inspection Ears, Nose, Throat Exam: moist mucous membranes, pharyngeal erythema Neck Exam: normal inspection, non-tender, supple, full range of motion Respiratory Exam: normal breath sounds, lungs clear, No chest tenderness, No respiratory distress, No wheezing, No stridor Cardiovascular Exam: regular rate/rhythm, normal heart sounds, normal peripheral pulses Gastrointestinal/Abdomen Exam: No tenderness Rectal Exam: not done Back Exam: normal inspection, normal range of motion, No CVA tenderness, No vertebral tenderness Extremity Exam: normal inspection, normal range of motion, pelvis stable Neurologic Exam: alert, oriented x 3, cooperative, satellite technician II-XII nml as tested, nml cerebellar function, nml station & gait, sensation nml Skin Exam: normal color, warm, dry Lymphatic Exam: No adenopathy SpO2 Interpretation: normal O2 Delivery: Room Air - Course Nursing assessment & vital signs reviewed: Yes Lab/Rad Data: Laboratory Results 03/21/24 Range/Units 08:31 Influenza Type A Ag NEGATIVE (NEGATIVE) Influenza Type B Ag NEGATIVE (NEGATIVE) RSV (PCR) NEGATIVE (NEGATIVE) SARS-CoV-2 (PCR) NEGATIVE (NEGATIVE) Group A Strep Antibody NOT DETECTED (NEGATIVE) - Progress Progress: unchanged Air Movement: good Progress Note: 03/21/24 08:43 My medical decision making and the assignment of low complexity to this patient's medical issue today is based on review of the patient's past medical history, review of the patient's medication list, reviewed patient drug allergy list, history present illness and physical findings on examination. The workup today includes group A strep test and viral swabs. Differential diagnosis includes but is not limited to strep pharyngitis, viral illness, ENT benign/malignant changes 03/21/24 09:22 I interpreted the patient's laboratory data results. Based on the laboratory data results, the patient does not have an emergent medical issue. However, it is recommended the patient call the [facility] today to make arrangements to be seen by ear nose and throat. Is also recommended the patient's stop chewing tobacco. Blood Culture(s) Obtained: No Antibiotics given: No Counseled pt/family regarding: lab results, diagnosis, need for follow-up Medical Desision Making - Diagnostic Testing Diagnostic test were ordered, analyzed, and reviewed by me: Yes - Risk of complications The pt has a mod risk of morbidity or mortality based on: Need for prescription drug management - Departure Departure Disposition: Home Clinical Impression: Pharyngitis Condition: Stable Critical Care Time: No Referrals: ABNER LAUREN NP [Family Provider] - Follow up/PCP as directed Additional Instructions: Drink plenty of clear liquids. Stop chewing tobacco. Call the CT today, 03/21/2024, to make arrangements to be seen by learning coordinator for a complete workup. Keep your April 2024 appointment Prescriptions: Amoxicillin 500 mg Cap [Amoxil 500 mg] 500 mg PO TID #21 cap
[2024-03-21 08:32] VITALS: PULSE 87; RESP 20; TEMP 96.7
[2024-03-21 08:56] LABS: Group A Strep NOT DETECTED (NEGATIVE)
[2024-03-21 09:09] LABS: INFLUENZA A NEGATIVE (NEGATIVE); INFLUENZA B NEGATIVE (NEGATIVE); RESPIRATORY SYNCTIAL VIRUS NEGATIVE (NEGATIVE); SARS-CoV-2 Xpert Express NEGATIVE (NEGATIVE)
[2024-03-21 09:39] VITALS: BP 119/73; O2SAT 91
== END 2024-03-21 10:06 | disposition home or self-care (01) ==
LOC: ED 08:02
DX: J02.9 Acute pharyngitis, unspecified (principal); H92.02 Otalgia, left ear; R51.9 Headache, unspecified; F17.220 Nicotine dependence, chewing tobacco, uncomplicated
CPT/HCPCS: 0241U; 87651; 99283; 99282

== ENCOUNTER 2024-05-29 13:31 | Emergency (ER) | payer OTHER ==
[2024-05-29 14:00] VITALS: BP 154/110; PULSE 82; RESP 18; TEMP 97; O2SAT 97
--- NOTE | 2024-05-29 14:23 | ERPHSYRPT ---
- History of Present Illness Time Seen by Provider: 05/29/24 14:19 Source: patient Exam Limitations: no limitations Patient Subjective Stated Complaint: pt here for getting out of car and slipped and fell. co pain to left ankle pain Triage Nursing Assessment: pt alert, resp easy, walked in with a limp.has some swelling to ankle, no bruising noted Physician History: 48 years old with history of diabetes mellitus, hypertension, peripheral neuropathy presented in the ER with complaint of left ankle pain and swelling after he twisted while getting out of the car this morning. Patient reports gradually increased swelling and pain especially with ambulation. Pain is more in the medial malleoli are area. No distal numbness or tingling. No injury anywhere else. Has diffuse tenderness around left ankle. Distal neurovascular intact. More tender on the medial malleoli are area. No crepitus. No deformity. X-rays ankle negative for fracture dislocation reviewed by me followed by official read. He is given [place] for symptomatic relief here, recommended Aircast, weightbearing as tolerated and outpatient podiatry/orthopedics follow-up. Discussed signs symptoms of worsening needing return to ER which she seems understanding. Stable for discharge. Allergies/Adverse Reactions: duloxetine Allergy (Verified 05/29/24 13:52) gabapentin Allergy (Verified 05/29/24 13:52) Hives Home Medications: Atorvastatin Calcium 1 tab DAILY 07/15/16 [History] Aspirin 81 gm Chew [Baby Aspirin 81 mg Chew] 1 tab PO DAILY 09/17/19 [History] Pregabalin [Lyrica] 1 cap PO BID 09/17/19 [History] lisinopriL [Zestril] 1 tab PO DAILY 09/17/19 [History] Tizanidine HCl [Zanaflex] 4 mg PO DAILY 05/09/20 [History] Hx Tetanus, Diphtheria Vaccination/Date Given: No Hx Influenza Vaccination/Date Given: No Hx Pneumococcal Vaccination/Date Given: No Immunizations Up to Date: Yes Travel Risk - International Travel Have you traveled outside of the country in past 3 weeks: No - Emerging Infectious Disease Are you exhibiting symptoms associated with any current EIDs: No Symptoms: Other (Please Comment) (Sore throat) - Review of Systems Constitutional: No Symptoms Respiratory: No Symptoms Cardiac: No Symptoms Musculoskeletal: Fall, Injury, Joint Pain Skin: No Symptoms Neurological: No Symptoms Hematologic/Lymphatic: No Symptoms - Past Medical History Pertinent Past Medical History: Yes Neurological History: No Pertinent History ENT History: No Pertinent History Cardiac History: High Cholesterol, Hypertension Respiratory History: No Pertinent History Endocrine Medical History: Diabetes Type II Musculoskeletal History: Arthritis, Degenerative Disk Disease GI Medical History: No Pertinent History History: No Pertinent History Psycho-Social History: No Pertinent History Male Reproductive Disorders: No Pertinent History - Past Surgical History Past Surgical History: Yes Neuro Surgical History: No Pertinent History Cardiac: No Pertinent History Respiratory: No Pertinent History Gastrointestinal: Appendectomy Genitourinary: No Pertinent History Musculoskeletal: Other Other Surgical History: back surgeries. l5s1 fusion - Social History Smoking Status: Former smoker How long have you smoked: 30 yrs Exposure to second hand smoke: Yes Drug Use: none - Social Determinants of Health Will the patient participate in the screening: Yes Do you worry about a steady place to live?: No Do you have any problems with any of the following?: No known problems In the past 12 months,have you had to go without utilities?: No Transportation Issues: No Has anyone in your support network made you feel unsafe?: No Have you or anyone in your house had to go w/o enough food: No - Nursing Vital Signs Nursing Vital Signs: Initial Vital Signs Temperature 97.0 F 05/29/24 13:59 Pulse Rate 82 05/29/24 13:59 Respiratory Rate 18 05/29/24 13:59 Blood Pressure 154/110 05/29/24 13:59 O2 Sat by Pulse Oximetry 97 05/29/24 13:59 Pain Scale Pain Intensity 6 - Physical Exam General Appearance: no apparent distress Neck Exam: normal inspection, full range of motion Cardiovascular/Respiratory Exam: normal breath sounds, regular rate/rhythm Ankle Exam: right ankle: non-tender, normal inspection, normal range of motion, no evidence of injury, left ankle: bone tenderness, pain, soft tissue tenderne ss, swelling Foot Exam: left foot: pain, soft tissue tenderness Neuro/Tendon Exam: normal sensation, normal motor functions, normal tendon functions Mental Status Exam: alert, oriented x 3, cooperative Skin Exam: normal color SpO2 Interpretation: normal SpO2: 97 O2 Delivery: Room Air Ordered Tests: Active Orders 24 hr Category Date Time Status ANKLE (3 VIEWS) Stat Exams 05/29/24 14:01 Completed Medication Summary Discontinued Medications Generic Name Dose Route Start Last Admin Trade Name Augie PRN Reason Stop Dose Admin Hydrocodone Bitart/Acetaminophen 2 tab 05/29/24 14:19 05/29/24 14:42 Hydrocodone/Apap 5/325 1 Tab Tablet PO 05/29/24 14:20 2 tab STAT ONE Administration Hydrocodone Bitart/Acetaminophen Confirm 05/29/24 14:40 Hydrocodone/Apap 5/325 1 Tab Tablet Administered 05/29/24 14:41 Dose 2 tab .ROUTE .STK-MED ONE - Progress Progress: improved Progress Note: 05/29/24 14:59 48 years old with history of diabetes mellitus, hypertension, peripheral neuropathy presented in the ER with complaint of left ankle pain and swelling after he twisted while getting out of the car this morning. Patient reports gradually increased swelling and pain especially with ambulation. Pain is more in the medial malleoli are area. No distal numbness or tingling. No injury anywhere else. Has diffuse tenderness around left ankle. Distal neurovascular intact. More tender on the medial malleoli are area. No crepitus. No deformity. X-rays ankle negative for fracture dislocation reviewed by me followed by official read. He is given [place] for symptomatic relief here, recommended Aircast, weightbearing as tolerated and outpatient podiatry/orthopedics follow-up. Discussed signs symptoms of worsening needing return to ER which she seems understanding. Stable for discharge. Counseled pt/family regarding: diagnosis, need for follow-up, rad results Medical Desision Making - Diagnostic Testing Diagnostic test were ordered, analyzed, and reviewed by me: Yes Radiological Interpretation: Interpreted by me, Reviewed by me - Risk of complications The pt has a mod risk of morbidity or mortality based on: Need for prescription drug management - Departure Departure Disposition: Home Clinical Impression: Ankle sprain Condition: Stable Critical Care Time: No Referrals: [facility] [Primary Care Provider] - Follow up/PCP as directed PHONG DUONG DPM [ACTIVE STAFF] - Follow up/PCP as directed (For appointment for reevaluation) Instructions: Ankle sprain - ED discharge instructions Additional Instructions: Intermittent ice application. Weightbearing as tolerated. Follow-up with podiatry/orthopedics for reevaluation. Take Tylenol/ibuprofen as needed. Re turn to ER for any worsening. Prescriptions: Ibuprofen 600 mg PO Q6HPRN PRN 10 Days #20 tablet PRN Reason: Pain
[2024-05-29] MEDS ORDERED: NORCO 5/325 MG ONE (14:40)
[2024-05-29] MEDS: NORCO 5/325 MG PO ONE (14:42)
--- NOTE | 2024-05-29 14:54 | XRAY ---
Indication: Pain following fall. Comparison: None 3 view left ankle demonstrates tiny posterior heel spur and mild soft tissue swelling. No other bony, articular, or soft tissue abnormalities.
== END 2024-05-29 15:13 | disposition home or self-care (01) ==
LOC: ED 13:31
DX: S93.402A Sprain of unspecified ligament of left ankle, initial encounter (principal); V48.4XXA Person boarding or alighting a car injured in noncollision transport accident, initial encounter; E11.42 Type 2 diabetes mellitus with diabetic polyneuropathy; I10 Essential (primary) hypertension; E78.5 Hyperlipidemia, unspecified; Z79.899 Other long term (current) drug therapy
CPT/HCPCS: 73610; 99283; A9270-GY